=== PATIENT | female | born 1955 | race Caucasian/White ===

== ENCOUNTER 2022-11-16 06:48 | Observation (INO) ==
--- NOTE | 2022-10-27 12:47 | PAT Medication Instructions ---
Medication Instructions Date of Service October 27, 2022 Home Medications Medication Instructions Recorded hydrocortisone 0.5 % topical cream 1 applic topical BID PRN skin 07/06/22 irritation #28.4 grams aspirin 81 mg tablet,delayed release 81 mg PO QAM multivitamin 1 tab PO QAM hydrocortisone 0.5 % topical cream 1 applic topical BID PRN amoxicillin 500 mg capsule 2,000 mg PO DIRECTED ibuprofen 200 mg tablet 200 mg PO Q6H PRN Continue as directed amoxicillin 500 mg capsule 2,000 mg PO DIRECTED ASK your surgeon for instructions ibuprofen 200 mg tablet 200 mg PO Q6H PRN STOP taking 24 hours before surgery hydrocortisone 0.5 % topical cream 1 applic topical BID PRN DO NOT take the morning of surgery multivitamin 1 tab PO QAM Take morning of surgery With a small sip of water, OTHERWISE NOTHING TO EAT OR DRINK AFTER MIDNIGHT: aspirin 81 mg tablet,delayed release 81 mg PO QAM (unless directed otherwise by surgeon) Other Notes If you have any questions please call us at [phone] or [phone] or [phone] or [phone]
--- NOTE | 2022-11-02 10:36 | Anesthesiology Consultation ---
Date of Service November 02, 2022 Assessment & Plan (1) Encounter for pre-operative examination: Chart Review Chart Review: Acceptable Risk for Surgery and Patient seen in Pre Admission Testing Pt currently scheduled as 23 hours observation. If surgeon decides to change patient to Same Day Joint, patient would be acceptable risk for KARLENE, pending patient is motivated, has good support and surgeon's office completes Same Day Joint Program preop requirements. Per PAT appt on 11/02/22, patient denies any recent travel or large group activities. Pt is vaccinated for Covid. Will leave to surgeon's discretion if preop Covid testing needed. Educated on importance of using Covid precautions one week prior to surgery Teaching & Discussion Pre-Anesthesia Teaching/Discussion Notes: Instructed NPO after midnight before surgery,except medications with 15 cc of water. Medication instructions provided according to the PAT guidelines. History Surgery Operation Date: 11/16/22 07:00 Proposed Procedures p Right Total Hip Arthroplasty - Marco Calvert MD Height/Weight Height: 5 ft 2 in Weight: 95 kg Allergies Allergy/AdvReac Type Severity Reaction Status Date / Time No Known Allergies Allergy Verified 10/27/22 11:56 Medications Home Medications Medication Instructions Recorded Confirmed Last Taken aspirin 81 mg tablet,delayed 81 mg PO QAM 02/16/18 10/27/22 Unknown release multivitamin 1 tab PO QAM 02/16/18 10/27/22 Unknown hydrocortisone 0.5 % topical cream 1 applic topical BID PRN skin 07/06/22 10/27/22 Unknown irritation #28.4 grams amoxicillin 500 mg capsule 2,000 mg PO DIRECTED 10/27/22 10/27/22 Unknown ibuprofen 200 mg tablet 200 mg PO Q6H PRN Pain 10/27/22 10/27/22 Unknown Past Medical History Medical History Arthritis of right hip Impaired fasting glucose Obesity Exercise / Class Metabolic Activity II 4-5 Yardwork/Stairs/Walk up hill (one flight of stairs - no chest pain or SOB ) Past Family History Family History Father Diabetes Grandmother Myocardial infarction Denies family history of Ovarian cancer Prostate cancer Breast cancer Colorectal cancer Hypertension Past Surgical History Surgical History (Updated 11/02/22 @ 10:32 by Irene Patel PA-C) History of ear surgery History of left hip replacement History of tooth extraction with implant [place] teeth extracted Past Anesthesia History No Hx of Anesthesia Complications and No Family Hx of Anesthesia Complications History of PONV No Hx of Motion Sickness and History of PONV (remote hx of N/V after ear surgery ) Social History Smoking Status: Never smoker Do You Dip or Chew Tobacco: No Hx Alcohol Use: Yes Alcohol type: wine alcohol intake frequency: 0-2 drinks per day (1-2 glasses/day) Hx Substance Use: No substance use type: does not use Review of Systems Hx of snoring - no witnessed apnea - no hx of sleep study Patient denies chest pain, shortness of breath, dyspnea on exertion, reflux, cough, wheezing, palpitations. No hx of seizures, stroke, ME. No hx of blood clots or blood transfusions Physical Exam Vital Signs VITALS BP 148/76 P 94bpm TEMP 98.0 SP02 95% RESP 16 Constitutional no acute distress ENMT Mouth: no TMJ clicking Thyromental Distance: < 3.5 Finger Breadths (3.0) Mallampati Class: III Crowns to side teeth and molars Neck + limited neck extension (minimal ) Respiratory normal respiratory effort; no respiratory distress Auscultation: lungs clear to auscultation bilaterally; no wheezes Cardiovascular Rate/Rhythm: regular rate and regular rhythm Heart Sounds: no murmur Vessels: no carotid bruit Musculoskeletal Spine: no pain with cervical ROM Extremities: extremities normal to inspection Psychiatric Orientation: alert Lab Results Anesthesia Preop Results Results Anesthesia Widget: WBC 4.31 K/ul (4.8-10.8) L 11/02/22 Hgb 15.1 g/dl (12.0-16.0) 11/02/22 Hct 43.5 % (37.0-47.0) 11/02/22 Plt 177 K/uL (130-400) 11/02/22 Na 139 mmol/L (136-145) 11/02/22 K 4.3 mmol/L (3.5-5.1) 11/02/22 Cl 107 mmol/L (98-107) 11/02/22 CO2 26 mmol/L (21-32) 11/02/22 BUN 17 mg/dl (6-23) 11/02/22 Creat 0.69 mg/dl (0.6-1.2) 11/02/22 Glucose Level 93 mg/dl (70-99(Fasting)) 11/02/22 PT 11.1 Seconds (9.0-12.0) 11/02/22 PTT 26.4 Seconds (21.0-31.0) 11/02/22 INR 1.0 (0.9-1.1) 11/02/22 HA1c 5.3 % (4.5-5.6) 11/02/22 Blood Type O Positive 11/02/22 Antibody Screen NEGATIVE 11/02/22 Testing Electrocardiogram Date: 11/02/22 Findings: + NSR @ (76bpm ) Right atrial enlargement When compared to EKG from January 28, 2010no significant changes found per cardio Chest X-Ray Date: 11/02/22 Findings: + NAD COVID-19 Risk Screen Screening Information COVID-19 Screen Date: 11/02/22 Exposure 21 Days Family/Household +COVID Last 21 Days: No Exposure 10 Days Any COVID Exposure Last 10 Days: No Symptoms Last 10 Days Experienced COVID Sx Last 10 Days: No + COVID 0-90 Days COVID + in Last 0-90 Days: No Risk Plan COVID Risk Plan: No Risk Identified Patient Education COVID Preop Screening Education Complete: Yes
[~2022-11-16 06:48] MED LIST: ACETAMINOPHEN 500 MG TAB PO SCH; BUPIVACAINE 0.5 % 5 MG/1 ML PF 10ML VIAL ONE; BUPIVACAINE LIPOSOME/PF 266 MG, BUPIVACAINE/EPINEPHRINE 50 ML, SODIUM CHLORIDE 0.9% PF ... INFIL SCH; CeleBREX 200 MG CAP PO SCH; FAMOTIDINE 20 MG TAB PO SCH; LR 500ML BOLUS, THEN 15ML/HR IV SCH; LR 60ML/HR IV SCH; METOCLOPRAMIDE HCL 10 MG TABLET PO SCH; TRANEXAMIC ACID 1,000 MG **IV Pre-op IV SCH; ceFAZolin 2000MG 2,000 MG/15 ML SYR IV SCH; dexAMETHasone**PF** 10 MG/ML VIAL IV SCH
--- NOTE | 2022-11-16 06:54 | History & Physical Bridge Note ---
Date of Service November 16, 2022 History & Physical Bridge Note I have examined the patient, reviewed the History & Physical and in the interval since the performance of the History & Physical I have noted the following changes of clinical significance: no changes noted
[2022-11-16] MEDS ORDERED: fentaNYL citrate PF 100 MCG/2 ML VIAL ONE (07:36)
[2022-11-16] MEDS ORDERED: ONDANSETRON INJ 2 MG/ML 2 ML VIAL ONE (07:36)
[2022-11-16] MEDS ORDERED: MIDAZOLAM HCL 1 MG/ML 2ML VIAL ONE (07:36)
[2022-11-16] MEDS ORDERED: DEXAMETHASONE SOD INJ 4 MG/ML VIAL ONE (07:36)
[2022-11-16] MEDS ORDERED: PROPOFOL IV EMULSION 10 MG/ML 20 ML VIAL IV ONE (07:36)
[2022-11-16] MEDS ORDERED: BUPIVACAINE/EPINEPHRINE 0.5% MPF 1:200,000 30 ML VIAL ONE (08:48)
[2022-11-16] MEDS ORDERED: ePHEDrine sulfate 50 MG/ML AMP IV PRN (09:56)
[2022-11-16] MEDS ORDERED: ATROPINE SULFATE 0.1 MG/ML 10ML SYR IV PRN (09:56)
--- NOTE | 2022-11-16 11:11 | Operative Report ---
PG Post Operative Report Pre & Post Diagnosis Operation Date: 11/16/22 08:40 Pre-Op Diagnosis: Right Hip Advanced Degenerative Joint Disease Post-Op Diagnosis: Right Hip Advanced Degenerative Joint Disease I identified the patient and participated in the time-out.: Yes Procedure Operation Date: 11/16/22 08:40 Actual Procedures p Right Total Hip Arthroplasty--Uncemented with Application of Stabilization Cables x2(Right) - Marco Calvert MD Surgeon Marco Calvert MD Playground Monitor Wellington Issa PA-C Estimated Blood Loss 200 Findings Consistent with Post-Op Diagnosis Operative findings revealed a fairly mild cartilaginous to change the femoral head. She did have significant cystic changes of the acetabulum. Small hip joint effusion. Bone did not appear osteopenic or osteoporotic. Specimens Right femoral head sent for pathology Anesthesia Type Spinal MAC Complications Upon placing the first broach of the femoral component and seeing the broach there was a small calcar fracture. This was recognized immediately and we did place a Dall-Miles cable up around the femoral neck and then went below the lesser trochanter to stabilize the bone and decrease any risk of fracture propagation. As a result we will keep her touch weightbearing for a period of time postoperatively depending on her clinical exam, x-rays and recovery Indications Patient is a 67-year-old female who is had about 2-year history of increasing right hip pain discomfort unresponsive conservative treatment. X-rays reveal fairly well-preserved joint space but cystic changes of the acetabulum. Her pain clearly seems to come from the hip joint. She failed conservative measures and elected to total hip replacement. Of note, she had her left hip replaced at 12 years ago and is done well with that. Description of Procedure Operative implants consist of: 1. Biomet G7 size 50 mm acetabular shell. 2. 6.5 cancellous acetabular screws 1 at 35 mm length and 1 of 20 mm length. 3. [place] eliminator. 4. Highly cross-linked polyethylene liner with a 50 mm outer diameter, 36 mm inner diam with a ruvalcaba placed inferior and posterior. 5. DePuy Corail I size 9 standard femoral stem. 6. +1.5/36 mm ceramic articular ball. The patient was taken to the operating, identified, placed on the operating table supine position protectors were properly padded. IV antibiotics tried by anesthesia team. A spinal anesthetic and been implemented holding area. Andersen catheter was placed in sterile fashion. The patient then placed in the left lateral decubitus position. Axillary roll was placed. Stulberg hip positioner was used for positioning. The right hip was then prepped and draped in usual sterile fashion. A posterolateral approach to the right hip was then performed through a curvilinear incision centered over the greater trochanter. Sharp dissection Through subcutaneous tissue down to level the IT band gluteal fascia the IT band gluteal fascia incised longitudinally in line with skin incision. The underlying greater bursa was excised. The piriformis and external rotators along with the posterior hip joint capsule were then taken off the posterior aspect hip as a single layer. Great care was taken throughout the procedure protect the sciatic nerve at all times. It was internally rotated and dislocated. Femoral neck osteotomy cut was made with Final Cut about 10 mm above the lesser trochanter. Femoral head was removed and sent for pathology. The femur was retracted anteriorly. Attention drawn the acetabulum. The femur was retracted anteriorly. The acetabular labrum was excised. Pulmonary fat was excised. Sequential reaming the acetabular was then performed again with a size 43 and progressing up to a 49. I reamed a little with a 50 reamer and then placed a 50 mm Biomet G7 acetabular shell in about 40 degrees lateral opening and 20 degrees of anteversion and it was fixed with two 6.5 cancellous acetabular screws. A trial liner was placed. Attention drawn the femur. The proximal femur was entered with a cookie cutter followed by canal finder. I then began broaching with a size 8 broach. Even just placed in the 8 broach I did crack the calcar just medially. I recognized this immediately and would remove the broach. We placed 2 Dall-Miles cables 1 above the lesser trochanter when below to prevent prior crack propagation. I considered using additional other stems but I still felt this was the best stem with this fairly minor fracture. There is no signs of the propagated a anything further than the very top of the calcar. I therefore went about broaching and broached to a size 9. I trialed the hip. We would very careful to try and restore leg length and soft tissue tension appropriately. After considering everything I elected to use a standard stem with a +1.5 head in order to bring the femur out a little bit away from the cup to maximize the stability. Attention was placed under placing these implants. Nupathe all trial implants were removed. [place] hole eliminator was placed but highly cross-linked polyethylene liner with a ruvalcaba placed inferior and posterior then placed to maximize stability. A size 9 standard femoral stem was impacted in position. A +1.5/36 mm ceramic articular ball was placed. Hip was located once again found to be stable. Attention drawn to closing. Nupathe wounds irrigated cosigns pulsatile lavage solution. I did inject locally with 60 cc of half percent Marcaine with epinephrine. The posterior capsule and external rotators were then repaired through drill holes in the posterior trochanter with #2 Tycron suture. The IT band gluteal fascia then closed in 1 PDS suture in running fashion for subcutaneous tissues then closed with 2 layers the deep layer #2 Vicryl in the subcutaneous tissues with 2-0 Dexon suture in a buried interrupted fashion. The skin was closed with skin hayde. A Prevena VAC dressing was applied. The patient then transferred to the recovery room in stable condition. Patient tolerated procedure well. Wellington Issa, my physician child care assistant, was present for the entire procedure. His assistance was essential and required for appropriate patient positioning, prepping and draping, surgical exposure, performing the technical details of the operation, placement the implants, closure of the wound, and placement of the sterile bandage. I attest to the content of the Intraoperative Record and any orders documented therein. Any exceptions are noted below.
--- NOTE | 2022-11-16 12:11 | Anesthesiology Progress Note ---
Date of Service November 16, 2022 Anesthesia Post Procedure Vital Signs Vital Signs: Temp Pulse Resp BP Pulse Ox O2 Del Method O2 Flow Rate 11/16/22 12:00 36.8 C 83 20 128/76 95 Room Air 11/16/22 11:50 77 18 124/74 98 Room Air 11/16/22 11:40 81 20 115/70 93 Room Air 11/16/22 11:30 78 16 98/67 L 96 Room Air 11/16/22 11:20 73 14 119/57 L 95 Room Air 11/16/22 11:10 74 20 112/53 L 100 Room Air 11/16/22 11:04 36.1 C L 75 18 108/60 99 Oxymask 6 Transfer of Care Handoff Completed per policy Notes Mental Status: alert / awake / arousable Patient Amnestic to Procedure: Yes Nausea / Vomiting: adequately controlled Pain: adequately controlled Airway Patency, RR, SpO2: stable & adequate BP & HR: stable & adequate Hydration State: stable & adequate Neuraxial Anesthesia: was administered and sensory block is resolving Anesthetic Complications: no major complications apparent
--- NOTE | 2022-11-16 12:32 | XRay Report ---
XR hip 1V RT w pelvis CLINICAL HISTORY: Postoperative evaluation. COMPARISON: Pelvis and right hip radiographs October 27, 2022. FINDINGS: Alignment of the right hip arthroplasty is anatomic. Two femoral cerclage wires are in jerilyn ce. There is slight cortical irregularity of the inferior aspect of the greater trochanter of the rig ht femur without definitive fracture. There are no unexpected radiopaque bodies. There are skin stapl es. Left hip arthroplasty appears unremarkable. IMPRESSION: Postoperative radiograph demonstrating total right hip arthroplasty with placement of 2 f emoral cerclage wires. Slight cortical irregularity of the inferior aspect of the greater trochanter which could be correlated with intraoperative findings. ACT 112: Negative or not required by law. Electronically signed by: Paramjit Noyola M.D. 11/16/2022 12:30 PM
[2022-11-16] MEDS ORDERED: HYDROmorphone INJ 0.5 MG/0.5 ML SYR IV PRN (12:56)
[2022-11-16] MEDS ORDERED: NALOXONE HCL 0.4 MG/1 ML VIAL/CARP IV PRN (12:56)
[2022-11-16] MEDS ORDERED: MAGNESIUM HYDROXIDE SUSP 30 ML UDC PO PRN (12:56)
[2022-11-16] MEDS ORDERED: METOCLOPRAMIDE HCL INJ 5 MG/ML 2 ML VIAL IV PRN (12:56)
[2022-11-16] MEDS ORDERED: traMADol HCL 50 MG TABLET PO PRN (12:56)
[2022-11-16] MEDS ORDERED: bisacodyL 10 MG SUPP PR PRN (12:56)
[2022-11-16] MEDS ORDERED: ONDANSETRON INJ 2 MG/ML 2 ML VIAL IV PRN (12:56)
[2022-11-16] MEDS ORDERED: ALUMINUM/MAGNESIUM SUSP 30 ML UDC PO PRN (12:56)
[2022-11-16] MEDS ORDERED: HYDROCORTISONE 1% CRM 30 GM TUBE EXT PRN (13:11)
[2022-11-16] MEDS: SODIUM CHLORIDE 0.9% 1000ML 1,000 ML IV SCH (13:22)
[2022-11-16] MEDS: ACETAMINOPHEN 500 MG TAB PO SCH ×2 (13:53→20:26)
[2022-11-16] MEDS: KETOROLAC TROMETHAMINE 15 MG/ML VIAL IV SCH ×2 (13:53→17:11)
[2022-11-16] MEDS: ASCORBIC ACID 500 MG TAB PO SCH (15:54)
[2022-11-16] MEDS: ceFAZolin 2000MG 2,000 MG/15 ML SYR IV SCH (16:01)
--- NOTE | 2022-11-16 18:22 | Progress Notes ---
SUBJECTIVE: A 67-year-old white female postoperative from a right total hip replacement. This was c omplicated by small crack in the calcar, which was cabled x2. She is doing well. Really not having much pain yet. No chest pain or shortness of breath. Not feeling dizzy or lightheaded. OBJECTIVE: VITAL SIGNS: Temperature is 36.7. Vital signs are stable. GENERAL: Shows a pleasant, elderly female. She is sitting up in bed, talking to her and loo ks comfortable. LUNGS: Clear to auscultation. HEART: Regular rate and rhythm. ABDOMEN: Soft, nontender, nondistended. EXTREMITIES: Grossly neurovascularly intact except as follows. Examination of the right hip reveals the Prevena VAC dressing to be in place. Her leg lengths are eq ual. Thigh is soft and supple. She can dorsiflex and plantarflex her foot appropriately. X-RAYS: X-rays of the right hip from recovery room are reviewed. It shows right uncemented hip repl acement. Components looked to be in good position. No signs of problems. There is no visible crack or fracture. ASSESSMENT: A 67-year-old female postoperative from a right total hip replacement complicated by angélica y small proximal calcar fracture treated prophylactically with some cables. We were very careful to likely over treat this somewhat with two cables, but wanted to make sure we had a stable bone constru ct. We will need to alter her recovery and keep her touch weightbearing for somewhere in ____ weeks. PLAN: 1. DVT prophylaxis includes thigh-high TEDs, SCDs, and aspirin twice a day. 2. PT/OT. She is going to be touch weightbearing right leg for the next 2 to 4 weeks. 3. Pain control, doing okay with current pain regimen. 4. IV antibiotics x24 hours. 5. Disposition: Plan to discharge to home with some home health in her 's assistance if she does okay in therapy tomorrow. Job ID: [id number]
[2022-11-16] MEDS: ASPIRIN 81 MG ECTAB PO SCH (20:25)
[2022-11-16] MEDS: DOCUSATE SODIUM 100 MG CAP PO SCH (20:25)
[2022-11-16] MEDS: SENNA 8.6 MG TAB PO SCH (20:26)
[2022-11-16] MEDS ORDERED: SENNA 8.6 MG TAB PO SCH (21:00)
[2022-11-17] MEDS: KETOROLAC TROMETHAMINE 15 MG/ML VIAL IV SCH ×3 (00:02→11:41)
[2022-11-17] MEDS: ceFAZolin 2000MG 2,000 MG/15 ML SYR IV SCH (00:04)
[2022-11-17] MEDS: SODIUM CHLORIDE 0.9% 1000ML 1,000 ML IV SCH (00:04)
[2022-11-17 07:00] LABS: Basophils # (auto) 0.01 K/uL (0-0.2); Basophils % (auto) 0.1 %; Eosinophils # (auto) 0.01 K/uL (0-0.50); Eosinophils % (auto) 0.1 %; Hemoglobin 13.5 g/dl (12.0-16.0); Immature Granulocytes # (auto) 0.06 K/uL (0.01-0.20); Immature Granulocytes % (auto) 0.7 %; Lymphocytes # (auto) 1.11 K/uL (1.2-3.4); Lymphocytes % (auto) 12.2 %; Mean Corpuscular Hgb Conc 34.6 g/dL (32.0-36.0); Mean Corpuscular Volume 92.4 fL (80.0-100.0); Mean Platelet Volume 11.2 fL (9.4-12.4); Monocytes % (auto) 8.8 %; Neutrophils # (auto) 7.08 K/uL (1.40-6.50); Neutrophils % (auto) 78.1 %; Platelet Count 185 K/uL (130-400); RDW Coefficient of Variation 12.5 % (11.5-14.5); RDW Standard Deviation 41.8 fL (36.4-46.3); Red Blood Count 4.22 M/uL (4.20-5.40); White Blood Count 9.07 K/ul (4.8-10.8)
[2022-11-17 07:21] LABS: BUN Creatinine Ratio 20.2 (10-20); Calcium 8.4 mg/dl (8.6-10.3); Creatinine Clr Calc Pharmacy 68.7 ml/min; Est GFR (African American) 82.8 ml/min; Est GFR (Non-African American) 71.4 ml/min; Potassium 3.9 mmol/L (3.5-5.1)
[2022-11-17] MEDS ORDERED: dexAMETHasone 10 MG in SYRINGE 0 ML IV SCH (08:00)
[2022-11-17] MEDS: ASCORBIC ACID 500 MG TAB PO SCH (08:07)
[2022-11-17] MEDS: ACETAMINOPHEN 500 MG TAB PO SCH (08:08)
[2022-11-17] MEDS: DOCUSATE SODIUM 100 MG CAP PO SCH (08:09)
[2022-11-17] MEDS: ASPIRIN 81 MG ECTAB PO SCH (08:09)
[2022-11-17] MEDS: SENNA 8.6 MG TAB PO SCH (08:10)
--- NOTE | 2022-11-17 08:14 | Progress Notes ---
DATE OF SERVICE: 11/17/2022. SUBJECTIVE: A 67-year-old white female, postoperative day 1 from a right hip replacement complicated by a very small calcar fracture, treated with cable. She is doing well. Pain is controlled. Has n ot really been out of bed yet. Denies any chest pain or shortness of breath. Not feeling dizzy or l ightheaded. OBJECTIVE: VITAL SIGNS: Temperature 36.9. Vital signs are stable. GENERAL: Shows a pleasant middle-aged female. She is lying in bed, looks pretty comfortable this mo rning. EXTREMITIES: Examination of the right leg reveals the Prevena VAC dressing to be in place. Leg david ths were equal. She can dorsiflex and plantarflex her foot appropriately. She is neurologically int act. LABORATORY DATA: Hemoglobin 13.5. Hematocrit 39.0. Electrolytes are pending. ASSESSMENT: A 67-year-old white female, postoperative day 1 from a right total hip replacement compl icated by a small calcar fracture, treated with cerclage cabling. She is doing well. Pain is contro lled. We are going to keep her touch weightbearing for the first 2-4 weeks. PLAN: 1. DVT prophylaxis includes thigh-high TEDs, SCDs, and aspirin twice a day. 2. PT/OT. She is touch weightbearing right leg for the first 2-4 weeks. We will reevaluate in 2 we eks. 3. Pain control, doing okay with current pain regimen. 4. Disposition: Plan to discharge to home with some home health later today if does okay in therapy . Job ID: [id number]
[2022-11-17] MEDS ORDERED: MULTIVITAMIN TAB PO SCH ×2 (09:00)
--- NOTE | 2022-11-22 10:32 | Discharge Summary ---
Date of Service November 22, 2022 Discharge Data Procedures Performed Operation Date: 11/16/22 08:40 Actual Procedures p Right Total Hip Arthroplasty--Uncemented with Application of Stabilization Cables x2(Right) - Marco Calvert MD Hospital Course (1) S/P total right hip arthroplasty: This is a 67 year old patient admitted on 11/16/22 and underwent total hip arthroplasty, complicated by a calcar fracture treated with cerclage cables. There were no other complications. Transferred to the PACU post op and later to the orthopedic floor for further care. She was given ancef for antibiotic proph ylaxis. She was also given MANNY stockings, SCDs, and aspirin for DVT prophylaxis. Hemoglobin, hematocrit, and vital signs were monitored during her hospital stay and remained stable. Did not require any blood transfusions. No other complications during her hospital stay. By post op day #1 the patient was tolerating a regular diet, pain was reasonably controlled with oral pain medicine, and she was participating in physical therapy. On post op day #1 the patient was discharged home and set up with home health care. She was given printed discharge instructions including prescriptions for extra strength tylenol, aspirin, cefadroxil, ketorolac, zofran, senokot, and tramadol. Continue hip precautions. Continue physical therapy, touch weight bearing on the right lower extremity. Continue MANNY s tockings. Follow up approximately 2 weeks post op or sooner if there are problems or concerns. Coding Level of Care Code None Diagnoses S/P total right hip arthroplasty Z96.641
== END 2022-11-17 13:14 | disposition home health service (06) ==
LOC: 3E 06:48 → ASU 06:48